=== PATIENT | male | born 1950 | race Caucasian/White ===

== ENCOUNTER 2018-04-03 12:25 | Inpatient (IN) ==
[2018-04-03 13:42] LABS: Basophils % 0.2 % (0.0-0.8); Eosinophils # 0.1 10*3/uL (0.0-0.87); Eosinophils % 0.4 % (0.00-10.9); Hematocrit 40.2 VOL% (42.0-52.0); Hemoglobin 13.2 GM/DL (14.0-18.0); Immature Granulocytes % 0.8 %; Immature Granulocytes Absolute 0.11 #; Lymphocytes # 0.8 10*3/uL (1.4-4.0); Mean Corpuscular HGB Conc 32.8 GM/DL (32-36); Mean Corpuscular Hemoglobin 28 PG (27-34); Mean Corpuscular Volume 85.9 FL (87-102); Mean Platelet Volume 9.6 FL (9.6-12.0); Monocytes # 0.7 10*3/uL (0.11-0.8); Monocytes % 4.6 % (1.7-12.7); Neutrophils # 12.4 10*3/uL (1.4-7.4); Platelet Count 216 T/CUMM (130-400); Red Blood Count 4.68 MC/CUMM (3.8-5.5); Red Cell Distribution Width 14.1 % (9.3-17.3); White Blood Count 14.1 T/CUMM (4-12)
[2018-04-03 14:03] LABS: Lactic Acid 1.3 MMOL/L (0.4-2.0)
[2018-04-03 14:18] LABS: Bilirubin,Total 1.7 MG/DL (0.2-1.0); Calcium 8.3 MG/DL (8.5-10.1); Osmolality,Calculated 282.8 MOS/KG (273-304); Potassium 3.4 MMOL/L (3.5-5.1); Total Protein 6.7 G/DL (6.4-8.3)
[2018-04-03 15:22] LABS: Apearance,Urine CLEAR (Clear); Bilirubin,Urine Negative (Negative); Blood, Urine Negative (Negative); Glucose,Urine (UA) Negative (Negative); Hyaline Casts,Urine 3 /LPF (0-3); Ketones,Urine Negative (Negative); Mucus,Urine Occasional /LPF (Occasional); Nitrite,Urine Negative (Negative); Protein,Urine Negative; RBC,Urine 1 /HPF (0-4); Urine Color Yellow (Yellow); Urine Specific Gravity 1.017 (1.001-1.035); Urine Urobilinogen < 2.0 EU/DL (0.2-1.0); WBC,Urine 1 /HPF (0-6)
[2018-04-04 05:53] LABS: Basophils % 0.4 % (0.0-0.8); Eosinophils # 0.1 10*3/uL (0.0-0.87); Hematocrit 38.8 VOL% (42.0-52.0); Hemoglobin 12.8 GM/DL (14.0-18.0); Immature Granulocytes % 0.9 %; Lymphocytes # 0.9 10*3/uL (1.4-4.0); Lymphocytes % 8.3 % (21.2-54.2); Mean Corpuscular Hemoglobin 28 PG (27-34); Mean Corpuscular Volume 85.1 FL (87-102); Mean Platelet Volume 10.1 FL (9.6-12.0); Monocytes # 0.8 10*3/uL (0.11-0.8); Monocytes % 7.4 % (1.7-12.7); Neutrophils # 9.3 10*3/uL (1.4-7.4); Platelet Count 236 T/CUMM (130-400); Red Blood Count 4.56 MC/CUMM (3.8-5.5); Red Cell Distribution Width 14.5 % (9.3-17.3); White Blood Count 11.3 T/CUMM (4-12)
[2018-04-04 06:34] LABS: Albumin 2.7 G/DL (3.4-5.0); Calcium 8.3 MG/DL (8.5-10.1); Osmolality,Calculated 282.7 MOS/KG (273-304); Potassium 3.2 MMOL/L (3.5-5.1); Risk Ratio 3.67; Total Protein 6.6 G/DL (6.4-8.3); VLDL CHOLESTEROL 21.8 MG/DL
[2018-04-05 04:04] LABS: Basophils % 0.5 % (0.0-0.8); Eosinophils # 0.3 10*3/uL (0.0-0.87); Eosinophils % 3.7 % (0.00-10.9); Hematocrit 36.9 VOL% (42.0-52.0); Hemoglobin 11.6 GM/DL (14.0-18.0); Immature Granulocytes % 0.8 %; Immature Granulocytes Absolute 0.06 #; Lymphocytes % 13.4 % (21.2-54.2); Mean Corpuscular HGB Conc 31.4 GM/DL (32-36); Mean Corpuscular Hemoglobin 28 PG (27-34); Mean Corpuscular Volume 87.6 FL (87-102); Mean Platelet Volume 10.2 FL (9.6-12.0); Monocytes # 0.7 10*3/uL (0.11-0.8); Neutrophils # 5.6 10*3/uL (1.4-7.4); Neutrophils % 72.6 % (38.7-73.9); Platelet Count 221 T/CUMM (130-400); Red Blood Count 4.21 MC/CUMM (3.8-5.5); Red Cell Distribution Width 14.3 % (9.3-17.3); White Blood Count 7.8 T/CUMM (4-12)
[2018-04-05 04:26] LABS: Calcium 7.8 MG/DL (8.5-10.1); Osmolality,Calculated 284.4 MOS/KG (273-304); Potassium 3.8 MMOL/L (3.5-5.1)
[2018-04-07 04:20] LABS: Calcium 8.3 MG/DL (8.5-10.1); Osmolality,Calculated 280.8 MOS/KG (273-304); Potassium 4.2 MMOL/L (3.5-5.1)
[2018-04-08 06:43] LABS: Calcium 8.4 MG/DL (8.5-10.1); Osmolality,Calculated 281.5 MOS/KG (273-304); Potassium 3.8 MMOL/L (3.5-5.1)
[2018-04-08 07:19] VITALS: BP 131/61
== END 2018-04-08 10:49 | disposition home or self-care (01) | DRG 603 ==
LOC: N.ED 12:25 → SUATTDRO 14:37 → N.2E 15:52
PROVIDERS: ADMIT Emergency Medicine; ATTEND Emergency Medicine

== ENCOUNTER 2018-08-08 15:58 | Inpatient (IN) ==
[2018-08-08 16:54] LABS: Basophils # 0.1 10*3/uL (0.0-0.2); Basophils % 0.9 % (0.0-0.8); Eosinophils # 0.3 10*3/uL (0.0-0.87); Eosinophils % 3.2 % (0.00-10.9); Hematocrit 39.9 VOL% (42.0-52.0); Hemoglobin 12.7 GM/DL (14.0-18.0); Immature Granulocytes % 0.7 %; Immature Granulocytes Absolute 0.06 #; Lymphocytes % 12.2 % (21.2-54.2); Mean Corpuscular HGB Conc 31.8 GM/DL (32-36); Mean Corpuscular Hemoglobin 27 PG (27-34); Mean Platelet Volume 9.8 FL (9.6-12.0); Monocytes # 0.5 10*3/uL (0.11-0.8); Monocytes % 6.3 % (1.7-12.7); Neutrophils # 6.2 10*3/uL (1.4-7.4); Neutrophils % 76.7 % (38.7-73.9); Platelet Count 242 T/CUMM (130-400); Red Blood Count 4.75 MC/CUMM (3.8-5.5); Red Cell Distribution Width 15.3 % (9.3-17.3); White Blood Count 8.1 T/CUMM (4-12)
[2018-08-08 16:57] LABS: Apearance,Urine CLEAR (Clear); Bilirubin,Urine Negative (Negative); Blood, Urine Negative (Negative); Glucose,Urine (UA) Negative (Negative); Ketones,Urine Negative (Negative); Nitrite,Urine Negative (Negative); Protein,Urine 30 MG/DL; RBC,Urine <1 /HPF (0-4); Urine Color Yellow (Yellow); Urine Urobilinogen < 2.0 EU/DL (0.2-1.0); WBC,Urine 1 /HPF (0-6)
[2018-08-08 17:12] LABS: Lactic Acid 0.9 MMOL/L (0.4-2.0)
[2018-08-08 17:14] LABS: Albumin 3.5 G/DL (3.4-5.0); Bilirubin,Total 0.4 MG/DL (0.2-1.0); Calcium 8.8 MG/DL (8.5-10.1); Osmolality,Calculated 285.1 MOS/KG (273-304); Total Protein 7.5 G/DL (6.4-8.3)
[2018-08-08 17:20] LABS: INR 1.1; PT Patient Result 11.4 SECS; Partial Thromboplastin Time 25.7 SECS (0-40)
[2018-08-08] MEDS ORDERED: ALBUTEROL/IPRATROPIUM 3 ML NEB RESP TX STA (18:28)
[2018-08-08] MEDS ORDERED: methylPREDNISolone SOD SUC 125 MG/2 ML VIAL IV STA (18:28)
[2018-08-08] MEDS ORDERED: FUROSEMIDE 100 MG/10 ML VIAL IV STA (18:28)
[2018-08-08] MEDS ORDERED: ONDANSETRON 4 MG/2 ML VIAL IV STA (18:28)
[2018-08-08] MEDS ORDERED: DILTIAZEM 50 MG/10 ML VIAL IV STA (18:46)
[2018-08-08] MEDS ORDERED: DILTIAZEM 25 MG/5 ML VIAL IV ONE (18:59)
[2018-08-08 19:05] LABS: Troponin I 0.022 NG/ML (0.00-0.045)
[2018-08-08] MEDS ORDERED: ENOXAPARIN 100 MG/ML SYRINGE SUBCUT STA (19:46)
[2018-08-08] MEDS ORDERED: DOCUSATE SODIUM 100 MG CAPSULE PO PRN (23:51)
[2018-08-08] MEDS ORDERED: DEXTROSE 50% 25 GM/50 ML VIAL IV PRN (23:51)
[2018-08-08] MEDS ORDERED: METOPROLOL TARTRATE 5 MG/5 ML VIAL IV PRN (23:51)
[2018-08-08] MEDS ORDERED: GLUCAGON 1 MG VIAL IM PRN (23:51)
[2018-08-08] MEDS ORDERED: dilTIAZem Drip 125 MG/125 ML PREMIX IV ONE (23:56)
[2018-08-09] MEDS: dilTIAZem Drip 125 MG/125 ML PREMIX IV SCH (00:10)
[2018-08-09] MEDS: ALBUTEROL/IPRATROPIUM 3 ML NEB RESP TX SCH ×4 (00:44→20:17)
[2018-08-09 01:01] LABS: ABG Base Excess 1.9 MMOL/L (-2.5-2.5); ABG Oxygen Saturation 94.6 % (95-100); ABG PH 7.238 (7.35-7.45); ABG PO2 89.6 MM HG (80-95); ABG TCO2 28.9 MMOL/L (23-27); Allen Test Positive
[2018-08-09 01:02] LABS: ABG PCO2 75.7 MM HG (35-48)
[2018-08-09 02:34] LABS: Troponin I < 0.015 NG/ML (0.00-0.045)
[2018-08-09 02:56] LABS: ABG Base Excess 2.8 MMOL/L (-2.5-2.5); ABG HCO3 26.8 MMOL/L (20-26); ABG Oxygen Saturation 96.8 % (95-100); ABG PCO2 67.4 MM HG (35-48); ABG PH 7.283 (7.35-7.45); ABG TCO2 28.4 MMOL/L (23-27); Allen Test Positive; Pt O2 Delivery Device Other
[2018-08-09] MEDS ORDERED: KETOROLAC 30 MG/1 ML VIAL ONE (04:03)
[2018-08-09] MEDS ORDERED: KETOROLAC 30 MG/1 ML VIAL IV STA (04:09)
[2018-08-09 04:54] LABS: Allen Test Positive; Pt O2 Delivery Device Other
[2018-08-09 04:58] LABS: ABG Base Excess 3.1 MMOL/L (-2.5-2.5); ABG PH 7.275 (7.35-7.45); ABG PO2 77.2 MM HG (80-95)
[2018-08-09 05:08] LABS: ABG PCO2 70.1 MM HG (35-48)
[2018-08-09 05:17] LABS: Basophils % 0.4 % (0.0-0.8); Eosinophils % 0.1 % (0.00-10.9); Hematocrit 40.6 VOL% (42.0-52.0); Hemoglobin 12.4 GM/DL (14.0-18.0); Immature Granulocytes % 1.1 %; Immature Granulocytes Absolute 0.09 #; Lymphocytes # 0.6 10*3/uL (1.4-4.0); Lymphocytes % 6.9 % (21.2-54.2); Mean Corpuscular HGB Conc 30.5 GM/DL (32-36); Mean Corpuscular Hemoglobin 26 PG (27-34); Mean Corpuscular Volume 85.8 FL (87-102); Mean Platelet Volume 9.6 FL (9.6-12.0); Monocytes # 0.1 10*3/uL (0.11-0.8); Monocytes % 1.6 % (1.7-12.7); Neutrophils # 7.5 10*3/uL (1.4-7.4); Neutrophils % 89.9 % (38.7-73.9); Platelet Count 220 T/CUMM (130-400); Red Blood Count 4.73 MC/CUMM (3.8-5.5); Red Cell Distribution Width 15.3 % (9.3-17.3); White Blood Count 8.3 T/CUMM (4-12)
[2018-08-09] MEDS ORDERED: fentaNYL 100 MCG/2 ML VIAL IV STA (05:30)
[2018-08-09] MEDS ORDERED: fentaNYL 100 MCG/2 ML VIAL ONE (05:32)
[2018-08-09 06:03] LABS: Albumin 3.4 G/DL (3.4-5.0); Bilirubin,Total 0.6 MG/DL (0.2-1.0); Calcium 8.4 MG/DL (8.5-10.1); Osmolality,Calculated 288.5 MOS/KG (273-304); Potassium 4.3 MMOL/L (3.5-5.1); Thyroid Stimulating Hormone 0.575 uIU/ml (0.358-3.74); Total Protein 7.4 G/DL (6.4-8.3)
[2018-08-09] MEDS ORDERED: LORazepam 2 MG/1 ML VIAL IV STA (06:30)
[2018-08-09] MEDS ORDERED: LORazepam 2 MG/1 ML VIAL ONE (06:31)
[2018-08-09 07:22] LABS: Troponin I < 0.015 NG/ML (0.00-0.045)
[2018-08-09] MEDS ORDERED: ENOXAPARIN 80 MG/0.8 ML SYRINGE SUBCUT ONE (07:59)
[2018-08-09] MEDS: ENOXAPARIN 80 MG/0.8 ML SYRINGE SUBCUT SCH ×2 (08:00→20:36)
[2018-08-09] MEDS ORDERED: GLUCAGON 1 MG VIAL IM PRN (09:36)
[2018-08-09] MEDS ORDERED: DEXTROSE 50% 25 GM/50 ML VIAL IV PRN (09:36)
[2018-08-09] MEDS: MULTIVITAMIN (CENTRUM) TABLET PO SCH (11:28)
[2018-08-09] MEDS: DILTIAZEM CD 180 MG CAPSULE PO SCH (11:28)
[2018-08-09] MEDS: INSULIN REGULAR 100 UNIT/ML SUBCUT SCH ×3 (12:22→20:35)
[2018-08-09 13:06] LABS: ABG Base Excess 5.6 MMOL/L (-2.5-2.5); ABG HCO3 33.2 MMOL/L (20-26); ABG PCO2 62.3 MM HG (35-48); ABG PH 7.344 (7.35-7.45); ABG PO2 64.3 MM HG (80-95); ABG TCO2 35.1 MMOL/L (23-27); Allen Test Positive
[2018-08-09] MEDS ORDERED: SKIN HEALING OINT (AQUAPHOR) 50 GM TUBE TOP PRN (13:44)
[2018-08-09] MEDS: ACETAMINOPHEN 325 MG TABLET PO PRN (20:36)
[2018-08-10] MEDS: ALBUTEROL/IPRATROPIUM 3 ML NEB RESP TX SCH ×4 (00:26→19:44)
[2018-08-10] MEDS: ACETAMINOPHEN 325 MG TABLET PO PRN ×3 (04:28→19:41)
[2018-08-10 05:37] LABS: Basophils % 0.2 % (0.0-0.8); Eosinophils % 0.1 % (0.00-10.9); Hematocrit 38.1 VOL% (42.0-52.0); Hemoglobin 11.5 GM/DL (14.0-18.0); Immature Granulocytes % 0.9 %; Lymphocytes % 8.3 % (21.2-54.2); Mean Corpuscular HGB Conc 30.2 GM/DL (32-36); Mean Corpuscular Hemoglobin 27 PG (27-34); Mean Corpuscular Volume 88.2 FL (87-102); Mean Platelet Volume 9.7 FL (9.6-12.0); Monocytes # 0.9 10*3/uL (0.11-0.8); Monocytes % 7.9 % (1.7-12.7); Neutrophils # 9.6 10*3/uL (1.4-7.4); Neutrophils % 82.6 % (38.7-73.9); Platelet Count 218 T/CUMM (130-400); Red Blood Count 4.32 MC/CUMM (3.8-5.5); Red Cell Distribution Width 15.3 % (9.3-17.3); White Blood Count 11.7 T/CUMM (4-12)
[2018-08-10 06:01] LABS: Calcium 8.6 MG/DL (8.5-10.1); Osmolality,Calculated 284.5 MOS/KG (273-304); Potassium 4.3 MMOL/L (3.5-5.1)
[2018-08-10] MEDS: dilTIAZem Drip 125 MG/125 ML PREMIX IV SCH (07:01)
[2018-08-10] MEDS: FUROSEMIDE 20 MG/2 ML VIAL IV SCH (08:21)
[2018-08-10] MEDS: INSULIN REGULAR 100 UNIT/ML SUBCUT SCH ×4 (08:21→21:41)
[2018-08-10] MEDS: MULTIVITAMIN (CENTRUM) TABLET PO SCH (08:21)
[2018-08-10] MEDS: ENOXAPARIN 80 MG/0.8 ML SYRINGE SUBCUT SCH (08:21)
[2018-08-10] MEDS: sitaGLIPtin 25 MG TABLET PO SCH (08:22)
[2018-08-10] MEDS: DILTIAZEM CD 180 MG CAPSULE PO SCH (08:23)
[2018-08-10] MEDS: APIXABAN 5 MG TABLET PO SCH (09:35)
[2018-08-10] MEDS: MONTELUKAST 10 MG TABLET PO SCH (17:34)
[2018-08-10] MEDS: THEOPHYLLINE ER 300 MG TABLET PO SCH (21:37)
[2018-08-10] MEDS: FLUTICASONE 50 MCG NASAL SPRAY 16 GM BOTTLE BOTH NARES SCH (21:39)
[2018-08-11] MEDS: ALBUTEROL/IPRATROPIUM 3 ML NEB RESP TX SCH ×4 (01:00→19:18)
[2018-08-11 03:23] LABS: Basophils # 0.1 10*3/uL (0.0-0.2); Basophils % 0.7 % (0.0-0.8); Eosinophils # 0.1 10*3/uL (0.0-0.87); Eosinophils % 1.6 % (0.00-10.9); Hematocrit 38.3 VOL% (42.0-52.0); Hemoglobin 11.5 GM/DL (14.0-18.0); Immature Granulocytes % 0.6 %; Immature Granulocytes Absolute 0.05 #; Lymphocytes # 1.5 10*3/uL (1.4-4.0); Lymphocytes % 16.8 % (21.2-54.2); Mean Corpuscular Hemoglobin 26 PG (27-34); Mean Corpuscular Volume 86.1 FL (87-102); Mean Platelet Volume 10.2 FL (9.6-12.0); Monocytes # 0.7 10*3/uL (0.11-0.8); Monocytes % 8.5 % (1.7-12.7); Neutrophils # 6.3 10*3/uL (1.4-7.4); Neutrophils % 71.8 % (38.7-73.9); Platelet Count 228 T/CUMM (130-400); Red Blood Count 4.45 MC/CUMM (3.8-5.5); Red Cell Distribution Width 15.2 % (9.3-17.3); White Blood Count 8.8 T/CUMM (4-12)
[2018-08-11 03:45] LABS: Calcium 8.6 MG/DL (8.5-10.1); Osmolality,Calculated 279.7 MOS/KG (273-304); Potassium 3.8 MMOL/L (3.5-5.1)
[2018-08-11] MEDS ORDERED: BISACODYL 5 MG TABLET PO PRN (07:43)
[2018-08-11] MEDS ORDERED: LACTULOSE 20 GM/30 ML UDCUP PO ONE (07:43)
[2018-08-11] MEDS: DILTIAZEM CD 180 MG CAPSULE PO SCH (09:09)
[2018-08-11] MEDS: THEOPHYLLINE ER 300 MG TABLET PO SCH ×2 (09:10→21:20)
[2018-08-11] MEDS: MONTELUKAST 10 MG TABLET PO SCH (09:11)
[2018-08-11] MEDS: MULTIVITAMIN (CENTRUM) TABLET PO SCH (09:11)
[2018-08-11] MEDS: sitaGLIPtin 25 MG TABLET PO SCH (09:11)
[2018-08-11] MEDS: APIXABAN 5 MG TABLET PO SCH ×2 (09:11→21:20)
[2018-08-11] MEDS: FLUTICASONE 50 MCG NASAL SPRAY 16 GM BOTTLE BOTH NARES SCH ×2 (09:12→21:21)
[2018-08-11] MEDS: FUROSEMIDE 20 MG/2 ML VIAL IV SCH (09:15)
[2018-08-11] MEDS: INSULIN REGULAR 100 UNIT/ML SUBCUT SCH ×4 (10:05→21:17)
[2018-08-11] MEDS: ONDANSETRON 4 MG/2 ML VIAL IV PRN ×2 (18:40→22:39)
[2018-08-11] MEDS ORDERED: MELATONIN 3 MG TABLET PO SCH (21:00)
[2018-08-12] MEDS: ALBUTEROL/IPRATROPIUM 3 ML NEB RESP TX SCH ×3 (00:24→13:10)
[2018-08-12 05:48] LABS: Basophils # 0.1 10*3/uL (0.0-0.2); Basophils % 0.9 % (0.0-0.8); Eosinophils # 0.2 10*3/uL (0.0-0.87); Eosinophils % 2.3 % (0.00-10.9); Hematocrit 37.6 VOL% (42.0-52.0); Hemoglobin 11.5 GM/DL (14.0-18.0); Immature Granulocytes % 0.6 %; Immature Granulocytes Absolute 0.04 #; Lymphocytes # 0.9 10*3/uL (1.4-4.0); Lymphocytes % 12.8 % (21.2-54.2); Mean Corpuscular HGB Conc 30.6 GM/DL (32-36); Mean Corpuscular Hemoglobin 26 PG (27-34); Mean Corpuscular Volume 86.2 FL (87-102); Mean Platelet Volume 9.6 FL (9.6-12.0); Monocytes # 0.8 10*3/uL (0.11-0.8); Monocytes % 10.6 % (1.7-12.7); Neutrophils # 5.1 10*3/uL (1.4-7.4); Neutrophils % 72.8 % (38.7-73.9); Platelet Count 188 T/CUMM (130-400); Red Blood Count 4.36 MC/CUMM (3.8-5.5); Red Cell Distribution Width 15.2 % (9.3-17.3); White Blood Count 7.1 T/CUMM (4-12)
[2018-08-12 06:19] LABS: % Iron Saturation 15.9 % (18-50); Calcium 8.5 MG/DL (8.5-10.1); Ferritin 17.1 ng/ml (26-388); Osmolality,Calculated 282.4 MOS/KG (273-304); Potassium 3.6 MMOL/L (3.5-5.1)
[2018-08-12] MEDS: INSULIN REGULAR 100 UNIT/ML SUBCUT SCH ×2 (08:21→12:14)
[2018-08-12] MEDS: sitaGLIPtin 25 MG TABLET PO SCH (08:42)
[2018-08-12] MEDS: FUROSEMIDE 20 MG/2 ML VIAL IV SCH (08:42)
[2018-08-12] MEDS: DILTIAZEM CD 180 MG CAPSULE PO SCH (08:42)
[2018-08-12] MEDS: MONTELUKAST 10 MG TABLET PO SCH (08:42)
[2018-08-12] MEDS: APIXABAN 5 MG TABLET PO SCH (08:43)
[2018-08-12] MEDS: THEOPHYLLINE ER 300 MG TABLET PO SCH (08:43)
[2018-08-12] MEDS: MULTIVITAMIN (CENTRUM) TABLET PO SCH (08:43)
[2018-08-12] MEDS: FLUTICASONE 50 MCG NASAL SPRAY 16 GM BOTTLE BOTH NARES SCH (08:46)
[2018-08-12 14:36] VITALS: BP 107/70
== END 2018-08-12 15:47 | disposition home or self-care (01) | DRG 205 ==
LOC: N.ED 15:58 → SUATTDRO 20:00 → N.EDINP 20:00 → N.CC 08-09 10:57 → N.TELES 08-10 14:00
PROVIDERS: ADMIT Family Medicine; ATTEND Internal Medicine

== ENCOUNTER 2019-07-25 21:41 | Inpatient (IN) ==
[2019-07-25] MEDS ORDERED: INFLUENZA VIRUS VACCINE 0.5 ML SYRINGE IM ONE (23:34)
[2019-07-25] MEDS ORDERED: BISACODYL 5 MG TABLET PO PRN (23:35)
[2019-07-25] MEDS ORDERED: NICOTINE 21 MG/24 HR PATCH TRANSDERM PRN (23:35)
[2019-07-25] MEDS ORDERED: ACETAMINOPHEN 325 MG TABLET PO PRN (23:35)
[2019-07-25] MEDS ORDERED: diphenhydrAMINE CAP 25 MG CAPSULE PO PRN (23:35)
[2019-07-25] MEDS ORDERED: ONDANSETRON 4 MG/2 ML VIAL IV PRN (23:35)
[2019-07-26] MEDS ORDERED: DEXTROSE 50% 25 GM/50 ML VIAL IV PRN (00:12)
[2019-07-26] MEDS ORDERED: GLUCAGON 1 MG VIAL IM PRN (00:12)
[2019-07-26 01:00] LABS: Apearance,Urine CLOUDY (Clear); Bilirubin,Urine Negative (Negative); Blood, Urine Large mg/dL (Negative); Glucose,Urine (UA) Negative (Negative); Ketones,Urine Negative (Negative); Mucus,Urine Occasional /LPF (Occasional); Nitrite,Urine Negative (Negative); Protein,Urine 100 MG/DL; RBC,Urine 58 /HPF (0-4); Squamous Epithelial Cell,Urine Occasional /HPF (0-10); Urine Color Amber (Yellow); Urine Specific Gravity 1.014 (1.001-1.035); WBC,Urine 3 /HPF (0-6)
[2019-07-26] MEDS ORDERED: SODIUM CHLORIDE 0.9% 500 ML IV SCH (01:00)
[2019-07-26 01:15] LABS: ABG Base Excess -3.2 MMOL/L (-2.5-2.5); ABG HCO3 21.7 MMOL/L (20-26); ABG Oxygen Saturation 92.3 % (95-100); ABG PO2 83.4 MM HG (80-95); ABG TCO2 27.4 MMOL/L (23-27); Allen Test Positive; Pt O2 Delivery Device BIPAP
[2019-07-26] MEDS ORDERED: VANCOMYCIN INJ 2,000 MG in SODIUM CHLORIDE 0.9% 500 ML IV PRN (01:19)
[2019-07-26 01:22] LABS: Basophils % 0.2 % (0.0-0.8); Eosinophils % 0.1 % (0.00-10.9); Hematocrit 46.1 VOL% (42.0-52.0); Hemoglobin 13.8 GM/DL (14.0-18.0); Immature Granulocytes % 1.4 %; Immature Granulocytes Absolute 0.19 #; Lymphocytes # 0.7 10*3/uL (1.4-4.0); Lymphocytes % 5.2 % (21.2-54.2); Mean Corpuscular HGB Conc 29.9 GM/DL (32-36); Mean Corpuscular Volume 88.8 FL (87-102); Mean Platelet Volume 10.5 FL (9.6-12.0); NRBC # 0.04 10*3/uL; Neutrophils % 87.1 % (38.7-73.9); Platelet Count 201 T/CUMM (130-400); Red Blood Count 5.19 MC/CUMM (3.8-5.5); Red Cell Distribution Width 16.2 % (9.3-17.3); White Blood Count 13.8 T/CUMM (4-12)
[2019-07-26 01:22] LABS: ABG PH 7.131 (7.35-7.45)
[2019-07-26] MEDS: CEFEPIME 1,000 MG in SODIUM CHLORIDE 0.9% 100 ML IV SCH ×2 (01:42→12:39)
[2019-07-26 01:56] LABS: Albumin 3.9 G/DL (3.4-5.0); Calcium 8.6 MG/DL (8.5-10.1); Osmolality,Calculated 280.2 MOS/KG (273-304); Risk Ratio 4.39; Thyroid Stimulating Hormone 3.43 uIU/ml (0.358-3.74); Total Protein 7.8 G/DL (6.4-8.3); VLDL CHOLESTEROL 21.4 MG/DL
[2019-07-26 02:12] LABS: INR 1.2; PT Patient Result 13.5 SECS (9.6-12.2); Partial Thromboplastin Time 25.2 SECS (20.8-36.0)
[2019-07-26 02:20] LABS: CKMB % 2.3 %
[2019-07-26 02:21] LABS: Troponin I 0.666 NG/ML (0.00-0.045)
[2019-07-26 02:28] LABS: Albumin 3.9 G/DL (3.4-5.0); Bilirubin,Direct 0.4 MG/DL (0.0-0.20); Bilirubin,Indirect 1.2 MG/DL (0.0-1.0); Bilirubin,Total 1.6 MG/DL (0.2-1.0); Total Protein 7.9 G/DL (6.4-8.3)
[2019-07-26 02:56] LABS: ABG Base Excess -1.7 MMOL/L (-2.5-2.5); ABG HCO3 22.9 MMOL/L (20-26); ABG PO2 75.5 MM HG (80-95); ABG TCO2 28.2 MMOL/L (23-27); Allen Test Positive; Pt O2 Delivery Device BIPAP
[2019-07-26 03:03] LABS: ABG PCO2 88.7 MM HG (35-48); ABG PH 7.152 (7.35-7.45)
[2019-07-26] MEDS ORDERED: VANCOMYCIN INJ 2,500 MG in SODIUM CHLORIDE 0.9% 500 ML IV ONE (04:00)
[2019-07-26 04:48] LABS: ABG Base Excess -1.4 MMOL/L (-2.5-2.5); ABG HCO3 23.1 MMOL/L (20-26); ABG Oxygen Saturation 92.3 % (95-100); ABG PO2 80.5 MM HG (80-95); ABG TCO2 28.7 MMOL/L (23-27); Allen Test Positive; Pt O2 Delivery Device BIPAP
[2019-07-26 04:51] LABS: ABG PH 7.147 (7.35-7.45)
[2019-07-26] MEDS ORDERED: SODIUM CHLORIDE 0.9% 500 ML IV ONE (05:58)
[2019-07-26 06:10] LABS: Allen Test Positive; Pt O2 Delivery Device BIPAP
[2019-07-26 06:11] LABS: ABG Base Excess 0.3 MMOL/L (-2.5-2.5); ABG HCO3 31.8 MMOL/L (20-26); ABG Oxygen Saturation 91.1 % (95-100); ABG PO2 75.3 MM HG (80-95); ABG TCO2 34.6 MMOL/L (23-27)
[2019-07-26 06:21] LABS: ABG PH 7.159 (7.35-7.45)
[2019-07-26 06:22] LABS: ABG PCO2 91.4 MM HG (35-48)
[2019-07-26 07:15] LABS: Barbiturates Screen,Urine Negative (Negative); Benzodiazepines Screen,Urine Negative (Negative); Cannabinoid Screen,Urine Negative (Negative); Opiate Screen,Urine Negative (Negative); Phencyclidine Screen,Urine Negative (Negative)
[2019-07-26] MEDS: INSULIN REGULAR 100 UNIT/ML SUBCUT SCH ×4 (07:22→22:35)
[2019-07-26 07:57] LABS: Hepatitis B Core IgM Quant 0.12 Index; Hepatitis B Surface Ag Quant < 0.10 Index; Hepatitis B Surface Ag Result Negative (Negative); Hepatitis C Virus Ab Quant 0.03 Index; Hepatitis C Virus Ab Result Negative (Negative)
[2019-07-27] MEDS: CEFEPIME 1,000 MG in SODIUM CHLORIDE 0.9% 100 ML IV SCH ×2 (01:08→13:37)
[2019-07-27 03:55] LABS: Basophils % 0.4 % (0.0-0.8); Eosinophils # 0.1 10*3/uL (0.0-0.87); Eosinophils % 0.5 % (0.00-10.9); Hematocrit 40.4 VOL% (42.0-52.0); Hemoglobin 12.2 GM/DL (14.0-18.0); Lymphocytes # 0.8 10*3/uL (1.4-4.0); Lymphocytes % 7.8 % (21.2-54.2); Mean Corpuscular HGB Conc 30.2 GM/DL (32-36); Mean Corpuscular Volume 87.1 FL (87-102); Mean Platelet Volume 10.1 FL (9.6-12.0); Monocytes % 7.7 % (1.7-12.7); NRBC # 0.02 10*3/uL; Neutrophils % 82.6 % (38.7-73.9); Platelet Count 153 T/CUMM (130-400); Red Blood Count 4.64 MC/CUMM (3.8-5.5); Red Cell Distribution Width 15.9 % (9.3-17.3); White Blood Count 9.6 T/CUMM (4-12)
[2019-07-27 04:07] LABS: Calcium 7.7 MG/DL (8.5-10.1); Osmolality,Calculated 288.2 MOS/KG (273-304)
[2019-07-27] MEDS: INSULIN REGULAR 100 UNIT/ML SUBCUT SCH ×4 (07:14→21:58)
[2019-07-27 09:20] LABS: ABG Base Excess 0.6 MMOL/L (-2.5-2.5); ABG HCO3 24.8 MMOL/L (20-26); ABG Oxygen Saturation 93.4 % (95-100); ABG PO2 78.2 MM HG (80-95); ABG TCO2 28.7 MMOL/L (23-27); Allen Test Positive; Pt O2 Delivery Device BIPAP
[2019-07-27 09:22] LABS: ABG PCO2 79.9 MM HG (35-48)
[2019-07-27 09:23] LABS: ABG PH 7.204 (7.35-7.45)
[2019-07-27] MEDS ORDERED: VANCOMYCIN INJ 2,000 MG in SODIUM CHLORIDE 0.9% 500 ML IV PRN (09:54)
[2019-07-27] MEDS ORDERED: VANCOMYCIN INJ 2,000 MG in SODIUM CHLORIDE 0.9% 500 ML IV ONE (11:00)
[2019-07-28] MEDS: CEFEPIME 1,000 MG in SODIUM CHLORIDE 0.9% 100 ML IV SCH (01:44)
[2019-07-28 03:50] LABS: ABG Base Excess -0.9 MMOL/L (-2.5-2.5); ABG HCO3 23.6 MMOL/L (20-26); ABG Oxygen Saturation 92.3 % (95-100); ABG PO2 77.8 MM HG (80-95)
[2019-07-28] MEDS: INSULIN REGULAR 100 UNIT/ML SUBCUT SCH (08:49)
[2019-07-28 09:08] VITALS: BP 132/72
[2019-07-28] MEDS ORDERED: LORazepam 2 MG/1 ML VIAL IV PRN (09:35)
== END 2019-07-28 13:24 | disposition expired | DRG 871 ==
LOC: N.CC 23:36 → SUATTDRO 23:36 → N.4E 07-27 17:00
PROVIDERS: ADMIT Internal Medicine; ATTEND Family Medicine